=== PATIENT | male | born 2000 | race Caucasian/White ===

== ENCOUNTER 2021-07-19 17:47 | Emergency (ER) ==
[~2021-07-19] VITALS: Ht 180.3 cm; Wt 72.7 kg
== END 2021-07-20 01:50 | disposition left against medical advice (07) ==
LOC: M ED 17:47
DX: Z53.29 Procedure and treatment not carried out because of patient's decision for other reasons (principal)

== ENCOUNTER → 2024-08-03 | Outpatient (CLI) | payer OTHER | LOC: M RAD 15:49 | PROVIDERS: ATTEND Otolaryngology | DX: J32.8 Other chronic sinusitis (principal) ==